=== PATIENT | female | born 1995 | race Caucasian/White ===

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

== ENCOUNTER 2018-01-05 13:26 | Outpatient (CLI) | payer MEDICAID ==
[2018-01-05 18:17] LABS: ALBUMIN 5.1 g/dL (3.2-5.5); ALBUMIN/GLOBULIN RATIO 1.9 (1.0-2.2); BILIRUBIN,TOTAL 0.7 mg/dL (0.2-1.0); CALCIUM 9.1 mg/dL (8.5-10.3); CREATININE 0.7 mg/dL (0.4-1.0); TOTAL PROTEIN 7.8 g/dL (6.7-8.2)
[2018-01-05 18:25] LABS: BASOPHILS % (AUTO) 0.8 %; EOSINOPHILS # (AUTO) 0.1 10^3/uL (0.0-0.7); EOSINOPHILS % (AUTO) 2.3 %; HGB - HEMOGLOBIN 13.7 g/dL (12.0-16.0); LYMPHOCYTES # (AUTO) 1.7 10^3/uL (1.5-3.5); LYMPHOCYTES % (AUTO) 30.6 %; MEAN CORPUSCULAR HEMOGLOBIN 32.4 pg (27.0-31.0); MEAN CORPUSCULAR HGB CONC 33.3 g/dL (32.0-36.0); MEAN CORPUSCULAR VOLUME 97.3 fL (81.0-99.0); MEAN PLATELET VOLUME 9.9 fL (7.9-10.8); MONOCYTES # (AUTO) 0.5 10^3/uL (0.0-1.0); MONOCYTES % (AUTO) 9.4 %; NEUTROPHILS # (AUTO) 3.2 10^3/uL (1.5-6.6); NEUTROPHILS % (AUTO) 56.9 %; PLT - PLATELET COUNT 220 10^3/uL (130-450); RED BLOOD COUNT 4.22 10^6/uL (4.20-5.40); RED CELL DISTRIBUTION WIDTH 13.2 % (12.0-15.0); WHITE BLOOD COUNT 5.6 x10^3/uL (4.8-10.8)
== END 2018-01-05 13:27 | disposition home or self-care (01) ==
LOC: LAB.F 13:26
PROVIDERS: ATTEND Physician Assistant Medical
DX: R53.83 Other fatigue (principal); N93.9 Abnormal uterine and vaginal bleeding, unspecified
CPT/HCPCS: 36415; 80053; 85025

== ENCOUNTER 2018-02-10 10:22 | Emergency (ER) | payer MEDICAID ==
[2018-02-10] MEDS ORDERED: SODIUM CHLORIDE 0.9% 1,000 ML IV ONE (10:35)
[2018-02-10] MEDS ORDERED: DEXAMETHASONE 10 MG/ML VIAL IVP STA (10:35)
[2018-02-10] MEDS ORDERED: KETOROLAC 15 MG/ML VIAL IVP STA (10:35)
--- NOTE | 2018-02-10 10:36 | ED Physician Documentation ---
History of Present Illness - Stated complaint Stated Complaint: FEVER/NAUSEA/SORE THROAT/HEADACHE - Chief complaint Chief Complaint: Fever - History obtained from History obtained from: Patient, Family (mom) - History of Present Illness Timing: Yesterday (Sick since yesterday with cough, sore throat, body aches and diarrhea. She feels like her throat is swollen and having difficulty swallowing. Her grandmother is sick with similar illness. No recent travel.) Review of Systems Constitutional: reports: Fever, Chills, Myalgias, Fatigue Ears: denies: Ear pain Nose: reports: Rhinorrhea / runny nose Throat: reports: Sore throat Respiratory: reports: Cough. denies: Dyspnea GI: reports: Diarrhea. denies: Abdominal Pain, Nausea PD PAST MEDICAL HISTORY - Past Medical History Psych: Obsessive compulsive disorder - Past Surgical History Past Surgical History: No - Present Medications Home Medications: Ambulatory Orders Medication Instructions Recorded Confirmed PARoxetine [Paxil] 10 mg PO DAILY 06/04/16 06/04/16 Albuterol Sulf [Ventolin Hfa 1 - 2 puffs INH Q4HR PRN 02/10/18 02/10/18 Inhaler] Albuterol Sulf [Ventolin Hfa 1 - 2 puffs INH Q4HR PRN #1 inhaler 02/10/18 Inhaler] Bcp 02/10/18 Ibuprofen [Motrin] 600 mg PO Q6H PRN #30 tab 02/10/18 Ondansetron HCl [Zofran] 4 mg PO Q6H PRN #10 tablet 02/10/18 guaiFENesin/CODEINE [Robitussin AC] 5 ml PO Q6H PRN #120 ml 02/10/18 - Allergies Allergies/Adverse Reactions: Allergies Allergy/AdvReac Type Severity Reaction Status Date / Time No Known Drug Allergies Allergy Verified 02/10/18 10:27 - Social History Does the pt smoke?: No Smoking Status: Never smoker Does the pt drink ETOH?: No Does the pt have substance abuse?: No - Immunizations Immunizations are current?: Yes PD ED PE NORMAL - Vitals Vital signs reviewed: Yes (Tachycardic) - General General: Alert and oriented X 3, No acute distress - HEENT HEENT: Other (Oropharynx is normal without swelling, she does have chapped lips.) - Neck Neck: Supple, no meningeal sign, No bony TTP - Cardiac Cardiac: RRR, No murmur - Respiratory Respiratory: No respiratory distress, Other (Diminished at the right base) - Abdomen Abdomen: Non tender - Neuro Neuro: Alert and oriented X 3, Normal speech Eye Opening: Spontaneous Motor: Obeys Commands Verbal: Oriented GCS Score: 15 - Psych Psych: Normal mood, Normal affect Results - Vitals Vitals: Vital Signs - 24 hr 02/10/18 02/10/18 10:25 12:28 Temperature 37.3 C Heart Rate 135 H 120 H Respiratory 18 16 Rate Blood Pressure 122/69 117/70 O2 Saturation 100 100 Oxygen O2 Source Room air - Labs Labs: Laboratory Tests 02/10/18 02/10/18 02/10/18 10:31 10:45 10:45 WBC 6.1 RBC 3.93 L Hgb 13.1 Hct 37.3 MCV 95.0 MCH 33.4 H MCHC 35.1 RDW 13.0 Plt Count 168 MPV 9.0 Neut # (Auto) 5.3 Lymph # (Auto) 0.3 L Foard # (Auto) 0.4 Eos # (Auto) 0.0 Baso # (Auto) 0.0 Absolute Nucleated RBC 0.00 Nucleated RBC % 0.0 Sodium 134 L Potassium 3.3 L Chloride 104 Carbon Dioxide 22 Anion Gap 8.0 BUN 9 Creatinine 0.6 Estimated GFR (MDRD) 127 Glucose 98 Lactic Acid Calcium 8.8 Total Bilirubin 0.6 AST 29 ALT 17 Alkaline Phosphatase 59 Total Protein 7.9 Albumin 4.8 Globulin 3.1 Albumin/Globulin Ratio 1.5 Lipase 28 Urine Color YELLOW Urine Clarity CLEAR Urine pH 7.5 Ur Specific [place] 1.020 Urine Protein NEGATIVE Urine Glucose (UA) NEGATIVE Urine Ketones NEGATIVE Urine Occult Blood NEGATIVE Urine Nitrite NEGATIVE Urine Bilirubin NEGATIVE Urine Urobilinogen 0.2 (NORMAL) Ur Leukocyte Esterase NEGATIVE Ur Microscopic Review NOT INDICATED Urine Culture Comments NOT INDICATED Urine HCG, Qual NEGATIVE Infectious Foard Assay Influenza A (Rapid) Influenza B (Rapid) Group A Strep Rapid 02/10/18 02/10/18 02/10/18 10:45 10:45 10:45 WBC RBC Hgb Hct MCV MCH MCHC RDW Plt Count MPV Neut # (Auto) Lymph # (Auto) Foard # (Auto) Eos # (Auto) Baso # (Auto) Absolute Nucleated RBC Nucleated RBC % Sodium Potassium Chloride Carbon Dioxide Anion Gap BUN Creatinine Estimated GFR (MDRD) Glucose Lactic Acid 2.1 Calcium Total Bilirubin AST ALT Alkaline Phosphatase Total Protein Albumin Globulin Albumin/Globulin Ratio Lipase Urine Color Urine Clarity Urine pH Ur Specific Peterson Urine Protein Urine Glucose (UA) Urine Ketones Urine Occult Blood Urine Nitrite Urine Bilirubin Urine Urobilinogen Ur Leukocyte Esterase Ur Microscopic Review Urine Culture Comments Urine HCG, Qual Infectious Foard Assay NEGATIVE Influenza A (Rapid) Negative Influenza B (Rapid) Negative Group A Strep Rapid 02/10/18 10:45 WBC RBC Hgb Hct MCV MCH MCHC RDW Plt Count MPV Neut # (Auto) Lymph # (Auto) Foard # (Auto) Eos # (Auto) Baso # (Auto) Absolute Nucleated RBC Nucleated RBC % Sodium Potassium Chloride Carbon Dioxide Anion Gap BUN Creatinine Estimated GFR (MDRD) Glucose Lactic Acid Calcium Total Bilirubin AST ALT Alkaline Phosphatase Total Protein Albumin Globulin Albumin/Globulin Ratio Lipase Urine Color Urine Clarity Urine pH Ur Specific Peterson Urine Protein Urine Glucose (UA) Urine Ketones Urine Occult Blood Urine Nitrite Urine Bilirubin Urine Urobilinogen Ur Leukocyte Esterase Ur Microscopic Review Urine Culture Comments Urine HCG, Qual Infectious Foard Assay Influenza A (Rapid) Influenza B (Rapid) Group A Strep Rapid Negative PD MEDICAL DECISION MAKING - ED course ED course: 22-year-old woman with history of what sounds like a nonspecific viral syndrome. We checked flu, mono, strep, all negative. Chest x-ray clear. Lab work only notable for mild hypokalemia which was repleted orally and she was feeling much better after fluids and meds here. Departure - Departure Disposition: 01 Home, Self Care Clinical Impression: Viral syndrome, Cough, Hypokalemia Condition: Good Record reviewed to determine appropriate education?: Yes Instructions: ED Viral Syndrome Prescriptions: Albuterol Sulf [Ventolin Hfa Inhaler] 1 - 2 puffs INH Q4HR PRN #1 inhaler PRN Reason: Shortness Of Air/Wheezing guaiFENesin/CODEINE [Robitussin AC] 5 ml PO Q6H PRN #120 ml PRN Reason: Cough Ibuprofen [Motrin] 600 mg PO Q6H PRN #30 tab PRN Reason: Pain Ondansetron HCl [Zofran] 4 mg PO Q6H PRN #10 tablet PRN Reason: Nausea / Vomiting Comments: Call your doctor to arrange a follow-up appointment, make the next available appointment. In the interim, return anytime if worse or if new symptoms develop.
[2018-02-10 10:39] LABS: BILIRUBIN,URINE NEGATIVE (NEGATIVE); GLUCOSE, URINE (UA) NEGATIVE (NEGATIVE); KETONES,URINE (UA) NEGATIVE (NEGATIVE); LEUKOCYTE ESTERASE, URINE NEGATIVE (NEGATIVE); NITRITE,URINE NEGATIVE (NEGATIVE); OCCULT BLOOD,URINE NEGATIVE (NEGATIVE); PH,URINE 7.5 PH (5.0-7.5); PROTEIN,URINE NEGATIVE (NEGATIVE); UROBILINOGEN,URINE 0.2 (NORMAL) E.U./dL (NORMAL)
[2018-02-10 10:41] LABS: CLARITY,URINE CLEAR (CLEAR); HCG UR QUAL NEGATIVE
[2018-02-10 10:58] LABS: BASOPHILS % (AUTO) 0.8 %; EOSINOPHILS % (AUTO) 0.1 %; HGB - HEMOGLOBIN 13.1 g/dL (12.0-16.0); LYMPHOCYTES # (AUTO) 0.3 10^3/uL (1.5-3.5); LYMPHOCYTES % (AUTO) 4.5 %; MEAN CORPUSCULAR HEMOGLOBIN 33.4 pg (27.0-31.0); MEAN CORPUSCULAR HGB CONC 35.1 g/dL (32.0-36.0); MONOCYTES # (AUTO) 0.4 10^3/uL (0.0-1.0); MONOCYTES % (AUTO) 7.4 %; NEUTROPHILS # (AUTO) 5.3 10^3/uL (1.5-6.6); NEUTROPHILS % (AUTO) 87.2 %; PLT - PLATELET COUNT 168 10^3/uL (130-450); RED BLOOD COUNT 3.93 10^6/uL (4.20-5.40); WHITE BLOOD COUNT 6.1 x10^3/uL (4.8-10.8)
[2018-02-10 11:22] LABS: ALBUMIN 4.8 g/dL (3.2-5.5); ALBUMIN/GLOBULIN RATIO 1.5 (1.0-2.2); BILIRUBIN,TOTAL 0.6 mg/dL (0.2-1.0); CALCIUM 8.8 mg/dL (8.5-10.3); CREATININE 0.6 mg/dL (0.4-1.0); TOTAL PROTEIN 7.9 g/dL (6.7-8.2)
[2018-02-10] MEDS ORDERED: POTASSIUM BICARB 25 MEQ TABLET PO STA (12:23)
--- NOTE | 2018-02-10 13:06 | XRAY Report ---
Reason: cough Procedure Date: 02/10/2018 Accession Number: [id number] / [id number] Procedure: XR - Chest 2 View X-Ray CPT Code: 52095 FULL RESULT: EXAM: CHEST RADIOGRAPHY EXAM DATE: 02/10/2018 12:49 PM. CLINICAL HISTORY: Cough. COMPARISON: None. TECHNIQUE: 2 views. FINDINGS: Lungs/Pleura: No focal opacities evident. No pleural effusion. No pneumothorax. Normal volumes. Mediastinum: Heart and mediastinal contours are unremarkable. Other: None. IMPRESSION: No focal consolidation. RADIA
[2018-02-10 13:31] VITALS: BP 115/83
== END 2018-02-10 13:31 | disposition home or self-care (01) ==
LOC: ED 10:22
DX: B34.9 Viral infection, unspecified (principal); E87.6 Hypokalemia
CPT/HCPCS: 36415; 71046; 80053; 81003; 81025; 83605; 83690; 85025; 86308; 87070; 87275; 87276; 87430; 96361; 96374; 99283; 99284; A9270; 81001; 87086

== ENCOUNTER 2019-03-07 10:51 | Outpatient (CLI) | payer MEDICAID ==
[2019-03-07 17:26] LABS: BASOPHILS % (AUTO) 0.7 %; EOSINOPHILS # (AUTO) 0.1 10^3/uL (0.0-0.7); EOSINOPHILS % (AUTO) 0.9 %; LYMPHOCYTES # (AUTO) 1.4 10^3/uL (1.5-3.5); LYMPHOCYTES % (AUTO) 25.9 %; MEAN CORPUSCULAR HEMOGLOBIN 31.3 pg (27.0-31.0); MEAN CORPUSCULAR HGB CONC 31.6 g/dL (32.0-36.0); MONOCYTES # (AUTO) 0.6 10^3/uL (0.0-1.0); MONOCYTES % (AUTO) 10.1 %; NEUTROPHILS # (AUTO) 3.4 10^3/uL (1.5-6.6); NEUTROPHILS % (AUTO) 62.2 %; PLT - PLATELET COUNT 276 10^3/uL (130-450); RED BLOOD COUNT 4.15 10^6/uL (4.20-5.40); RED CELL DISTRIBUTION WIDTH 13.1 % (12.0-15.0); WHITE BLOOD COUNT 5.5 x10^3/uL (4.8-10.8)
[2019-03-07 17:38] LABS: ALBUMIN 4.4 g/dL (3.2-5.5); ALBUMIN/GLOBULIN RATIO 1.4 (1.0-2.2); BILIRUBIN,TOTAL 0.5 mg/dL (0.2-1.0); CALCIUM 8.9 mg/dL (8.5-10.3); CREATININE 0.6 mg/dL (0.4-1.0); TOTAL PROTEIN 7.5 g/dL (6.7-8.2)
== END 2019-03-07 10:52 | disposition home or self-care (01) ==
LOC: LAB.S 10:51
PROVIDERS: ATTEND Physician Assistant Medical
DX: Z51.81 Encounter for therapeutic drug level monitoring (principal); Z79.899 Other long term (current) drug therapy
CPT/HCPCS: 36415; 80053; 85025

== ENCOUNTER 2020-10-18 16:30 | Outpatient (CLI) | payer MEDICAID | END 2020-10-18 16:31 | disposition critical access hospital (66) | LOC: EMS 16:30 | DX: R41.0 Disorientation, unspecified (principal) | CPT/HCPCS: A0425; A0429 ==

== ENCOUNTER 2020-10-18 16:55 | Emergency (ER) | payer MEDICAID ==
[2020-10-18 17:21] VITALS: BP 134/87
[2020-10-18 17:32] LABS: MUDS CUTOFF CONCENTRATIONS CUTOFF CONC BELOW:
[2020-10-18 17:37] LABS: BILIRUBIN,URINE NEGATIVE (NEGATIVE); GLUCOSE, URINE (UA) NEGATIVE (NEGATIVE); KETONES,URINE (UA) TRACE mg/dL (NEGATIVE); LEUKOCYTE ESTERASE, URINE NEGATIVE (NEGATIVE); NITRITE,URINE NEGATIVE (NEGATIVE); OCCULT BLOOD,URINE NEGATIVE (NEGATIVE); PROTEIN,URINE NEGATIVE (NEGATIVE); UROBILINOGEN,URINE 1 (NORMAL) E.U./dL (NORMAL)
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
[2020-10-18] MEDS ORDERED: LORazepam 1 MG TABLET PO STA (17:46)
[2020-10-18 18:02] LABS: CLARITY,URINE CLEAR (CLEAR); HCG UR QUAL NEGATIVE
[2020-10-18 18:04] LABS: AMPHETAMINE SCREEN,URINE NEGATIVE (NEGATIVE); BARBITURATE SCREEN,UR NEGATIVE (NEGATIVE); BENZODIAZEPINES SCREEN, URINE NEGATIVE (NEGATIVE); COCAINE SCREEN URINE NEGATIVE (NEGATIVE); METHADONE SCREEN, URINE NEGATIVE (NEGATIVE); METHAMPHETAMINES SCREEN, URINE NEGATIVE (NEGATIVE); OPIATE SCREEN, URINE NEGATIVE (NEGATIVE); OXYCODONE SCREEN, URINE NEGATIVE (NEGATIVE); PROPOXYPHENE SCREEN, URINE NEGATIVE (NEGATIVE); THC CANNABINOID SCREEN, URINE NEGATIVE (NEGATIVE); TRICYCLIC ANTIDEPRESSANT,URINE NEGATIVE (NEGATIVE)
== END 2020-10-18 20:15 | disposition home or self-care (01) ==
LOC: EDUNIT# → EDBD → ED 16:55
DX: R40.4 Transient alteration of awareness (principal); F84.0 Autistic disorder
CPT/HCPCS: 80306; 81003; 81025; 99283; 99284; J8499; 80053; 80307; 80320; 80329; 81001; 82375; 82803; 83690; 84443; 85025; 87086

== ENCOUNTER 2022-01-31 00:25 | Outpatient (CLI) | payer MEDICAID | END 2022-01-31 00:26 | disposition EMS.NT | LOC: EMS 00:25 | DX: R45.89 Other symptoms and signs involving emotional state (principal) ==

== ENCOUNTER 2022-04-13 11:11 | Emergency (ER) | payer MEDICAID ==
[2022-04-13 11:44] VITALS: BP 146/89
== END 2022-04-13 12:08 | disposition left against medical advice (07) ==
LOC: ED 11:11
DX: Z53.29 Procedure and treatment not carried out because of patient's decision for other reasons (principal)

== ENCOUNTER 2022-07-17 20:56 | Outpatient (CLI) | payer MEDICAID | END 2022-07-17 20:57 | disposition EMS.NT | LOC: EMS 20:56 | DX: R45.89 Other symptoms and signs involving emotional state (principal) ==

== ENCOUNTER 2022-09-26 16:06 | Outpatient (CLI) | payer MEDICAID | END 2022-09-26 23:59 | disposition critical access hospital (66) | LOC: EMS 16:06 | DX: S51.812A Laceration without foreign body of left forearm, initial encounter (principal); S01.312A Laceration without foreign body of left ear, initial encounter; R51.9 Headache, unspecified; Y09 Assault by unspecified means | CPT/HCPCS: A0425; A0429; A0999 ==

== ENCOUNTER 2022-09-26 16:26 | Emergency (ER) | payer MEDICAID ==
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
[2022-09-26] MEDS: LORazepam 1 MG TABLET PO STA (16:40)
[2022-09-26 17:03] VITALS: BP 132/73
--- NOTE | 2022-09-26 17:05 | CT Report ---
PROCEDURE: HEAD WO INDICATIONS: head inj TECHNIQUE: Noncontrast 4.5 mm thick angled axial sections acquired from the foramen magnum to the vertex. For r adiation dose reduction, the following was used: automated exposure control, adjustment of mA and/or kV according to patient size. COMPARISON: None. FINDINGS: Image quality: Excellent. CSF spaces: Basal cisterns are patent. No extra-axial fluid collections. Ventricles are normal in size and shape. Brain: No midline shift. No intracranial masses or hemorrhage. Moeller-white matter interface is norm al. Skull and face: Calvarium and visualized facial bones are intact, without suspicious lesions. Sinuses: Visualized sinuses and mastoids are clear. IMPRESSION: No acute intracranial pathology Reviewed by: Alan Hathaway on 09/26/2022 5:04 PM PDT Approved by: Alan Hathaway on 09/26/2022 5:04 PM PDT Station ID: [id number]
== END 2022-09-26 18:41 | disposition home or self-care (01) ==
LOC: EDUNIT# → ED 16:26
DX: S06.9X1A Unspecified intracranial injury with loss of consciousness of 30 minutes or less, initial encounter (principal); S50.812A Abrasion of left forearm, initial encounter; Y04.8XXA Assault by other bodily force, initial encounter
CPT/HCPCS: 99283; 99284

== ENCOUNTER 2022-12-31 23:00 | Outpatient (CLI) | payer MEDICAID | END 2022-12-31 23:59 | disposition other institution (70) | LOC: EMS 23:00 | DX: F41.0 Panic disorder [episodic paroxysmal anxiety] (principal); F41.9 Anxiety disorder, unspecified | CPT/HCPCS: A0425; A0427; A0999 ==

== ENCOUNTER 2022-12-31 23:19 | Emergency (ER) | payer MEDICAID ==
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
[2022-12-31] MEDS ORDERED: LORazepam 0.5 MG TABLET PO STA (23:24)
[2023-01-01 02:33] VITALS: BP 111/67; O2SAT 100
== END 2023-01-01 02:20 | disposition home or self-care (01) ==
LOC: EDUNIT# → ED 23:19
DX: F41.9 Anxiety disorder, unspecified (principal); Z59.01 Sheltered homelessness
CPT/HCPCS: 99283; A9270

== ENCOUNTER 2023-02-02 19:41 | Outpatient (CLI) | payer MEDICAID | END 2023-02-02 19:42 | disposition critical access hospital (66) | LOC: EMS 19:41 | DX: R60.0 Localized edema (principal); M79.631 Pain in right forearm; S51.851A Open bite of right forearm, initial encounter; W57.XXXA Bitten or stung by nonvenomous insect and other nonvenomous arthropods, initial encounter | CPT/HCPCS: A0425; A0429 ==

== ENCOUNTER 2023-02-02 19:52 | Emergency (ER) | payer MEDICAID ==
[2023-02-02] MEDS ORDERED: LORazepam 1 MG TABLET PO STA (19:55)
--- NOTE | 2023-02-02 19:57 | ED Physician Documentation ---
History of Present Illness - Stated complaint Stated Complaint: RT ARM SWELLING - History obtained from History obtained from: Patient, EMS - History of Present Illness Timing: How many weeks ago (2) Pain level max: 7 Pain level now: 7 - Additonal information Additional information: Patient is a 27-year-old female who presents to the emergency department with an abscess to the right forearm, present for the past 1 to 2 weeks. No fevers. No chills. Increasing pain tonight. Denies any IV drug use. Denies any possibility of . Worse with palpation and movement. She denies any drainage at home. Review of Systems Constitutional: denies: Fever, Chills Respiratory: denies: Dyspnea, Cough : denies: Now EGA PD PAST MEDICAL HISTORY - Past Medical History Past Medical History: Yes Psych: Depression, Anxiety, Post traumatic stress disorder - Past Surgical History Past Surgical History: No - Present Medications Home Medications: Ambulatory Orders Medication Instructions Recorded Confirmed Sulfamethox/Trimeth 800/160 1 each PO BID #14 tablet 02/02/23 [Bactrim Ds 800/160] cephALEXin [Keflex] 500 mg PO Q6H #28 cap 02/02/23 - Allergies Allergies/Adverse Reactions: Allergies Allergy/AdvReac Type Severity Reaction Status Date / Time fluoxetine AdvReac Emesis Verified 02/02/23 19:58 paroxetine AdvReac Emesis Verified 02/02/23 19:58 - Social History Does the pt smoke?: No Smoking Status: Never smoker Does the pt drink ETOH?: No Does the pt have substance abuse?: No - Immunizations Immunizations are current?: Yes PD ED PE NORMAL - Vitals Vital signs reviewed: Yes - General General: Alert and oriented X 3, No acute distress, Well developed/nourished - HEENT HEENT: Moist mucous membranes - Neck Neck: Supple, no meningeal sign - Cardiac Cardiac: RRR, Strong equal pulses - Respiratory Respiratory: No respiratory distress, Clear bilaterally - Abdomen Abdomen: Soft, Non tender, Non distended - Derm Derm: Warm and dry - Extremities Extremities: Other (Right forearm, volar aspect has a 2 x 2 centimeter round abscess, indurated and fluctuant. No significant surrounding cellulitis. No streaking. Neurovascular intact) - Neuro Neuro: Alert and oriented X 3 - Psych Psych: Normal mood, Normal affect Results - Vitals Vitals: Vital Signs - 24 hr 11/09/23 19:56 Temperature 36.9 C Heart Rate 88 Respiratory 18 Rate Blood Pressure 133/81 H O2 Saturation 100 Oxygen O2 Source Room air Procedures - Abscess I&D (location) R forearm Preparation: Alcohol, Lidocaine 1%, With epi Incision: Incised with scalpel, Purulent drainage, Culture obtained Other: Pt tolerated well, Dressing applied, Antibiotic prescribed PD Medical Decision Making - ED course Complexity details: considered differential, d/w patient ED course: Patient with a small abscess on the right forearm. This was incised and drained. Tolerated well. Wound culture obtained. Will place on Bactrim and Keflex for home. No significant surrounding cellulitis. Patient counseled regarding signs and symptoms for which I believe and urgent re-evaluation would be necessary. Patient with good understanding of and agreement to plan and is comfortable going home at this time This document was made in part using voice recognition software. While efforts are made to proofread this document, sound alike and grammatical errors may occur. Departure - Departure Disposition: 01 Home, Self Care Clinical Impression: Abscess Condition: Good Instructions: ED Abscess IandD Follow-Up: your,doctor in 3-5 days for wound check [Other] Prescriptions: Sulfamethox/Trimeth 800/160 [Bactrim Ds 800/160] 1 each PO BID #14 tablet cephALEXin [Keflex] 500 mg PO Q6H #28 cap Comments: Your prescriptions were sent to [facility] in [place] and you had an abscess that was drained today. Should continue to improve over the next few days. Take all antibiotics until gone. Please return if you worsen. You should have a wound check in 3 to 5 days either here or with your doctor. A wound culture was also performed, if an antibiotic change is needed, we will call you. Forms: PCP List
[2023-02-02 20:07] VITALS: BP 133/81; O2SAT 100
[2023-02-02] MEDS ORDERED: cephALEXin 250 MG CAPSULE PO STA (20:44)
[2023-02-02] MEDS ORDERED: SULFAMETH/TRIMETH DS 800/160 MG TABLET PO STA (20:44)
== END 2023-02-02 21:04 | disposition home or self-care (01) ==
LOC: EDUNIT# → ED 19:52
DX: L02.413 Cutaneous abscess of right upper limb (principal)
CPT/HCPCS: 10060; 87070; 87181; 87205; 99283; A9270; J8499